=== PATIENT | female | born 1995 | race Caucasian/White ===

== ENCOUNTER 2023-03-26 19:58 | Emergency (ER) | payer BC, OTHER ==
[2023-03-26 20:04] VITALS: BP 109/75; PULSE 88; RESP 20; TEMP 98.5; BMI 24.1
[2023-03-26] MEDS ORDERED: ALBUTEROL SO4 0.083% IH SOL 2.5 MG/3 ML VIAL.NEB. NEB ONE ×2 (20:23→20:31)
== END 2023-03-26 21:14 | disposition home or self-care (01) ==
LOC: FER 19:58
PROC: 3E0F7GC Introduction of Other Therapeutic Substance into Respiratory Tract, Via Natural or Artificial Opening (ICD-10-PCS; principal; 2023-03-26)
DX: R05.9 Cough, unspecified (principal); R07.89 Other chest pain; J20.8 Acute bronchitis due to other specified organisms; Z20.822 Contact with and (suspected) exposure to COVID-19
CPT/HCPCS: 0241U-QW; 99283-25